=== PATIENT | female | born 1980 | race Caucasian/White ===

== ENCOUNTER 2024-09-22 09:15 | Outpatient (RCR) | payer MEDICARE, OTHER, SELFPAY ==
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
--- OUTSIDE RECORDS SUMMARY | 2024-05-05 08:23 | XMS_ITS | Continuity of Care Document ---
Author Name [facility] User [facility] Address Unknown Organization Unknown Address Unknown Procedures FILTER APPLIED:Only known Procedures with Onset Date within the last 5 years Procedure Date Procedure Provider Additional Inform ation Status THERAPEUTIC EXERCISES (15769) Completed PT EVAL MOD COMPLEX 30 MIN (60116) Completed MANUAL THERAPY 1/> REGIONS (66716) Completed Encounters FILTER APPLIED:Only known Encounters with Admission Date within the last 5 years Encounter Location Admission Discharge Billing Code Chainstitch Sewing Machine Operator Riya ttender Outpatient Keyla vo
--- OUTSIDE RECORDS SUMMARY | 2024-05-05 08:24 | XMS_ITS | Referral Summary ---
Author Organization [facility] Address [address] [place] [address]. [place] [address] Care Team Providers Care Slat Twister Name Role Phone Naman Hernandez MD Unavailable [phone] Naman Hernandez MD Primary Care Provider Allergies Active Allergy Reactions Criticality Noted Date Comments [place]-Containing Products 11/26/2016 [facility]lerence Medications aluminum chloride (DRYSOL) 20 % external solutionIndicatio ns:Molar Apply topically as needed 4 Active clobetasol (TEMOVATE) 0.05 % external solutionIndicatio ns:Molar Apply topically as needed 5 Active tretinoin (RETIN-A) 0.1 % creamIndications: Molar Apply topically as needed 5 Active [place]-3 Fatty Acids (OMEGA 3 PO)Indications:Mo lar Take 3 capsules by mouth daily Unsure of dosage. Active VITAMIN D, CHOLECALCIFEROL, POIndications:Mol ar Take by mouth daily Unsure of dosage. Active oxyCODONE (ROXICODONE) 5 MG IR tabletIndications :Molar Take 1-2 tablets (5-10 mg) by mouth every 3 hours as needed for pain or other (Moderate to Severe) 10 tablet 7 Active Additional Information Patient not taking.Reported on 03/18/2017 ibuprofen (ADVIL/MOTRIN) 600 MG tabletIndications :Molar Take 1 tablet (600 mg) by mouth every 6 hours as needed for pain (mild) 30 tablet 7 Active Additional Information Patient not taking.Reported on 03/18/2017 acetaminophen (TYLENOL) 325 MG tabletIndications :Molar Take 2 tablets (650 mg) by mouth every 4 hours as needed for other (mild pain) 30 tablet 7 Active Additional Information Patient not taking.Reported on 02/04/2017 Probiotic Product (PROBIOTIC DAILY PO) Take 2 tablets by mouth daily Active etonogestrel-ethi nyl estradiol (NUVARING) 0.12-0.015 MG/24HR vaginal ringIndications:G TD (gestational trophoblastic disease),Molar Insert 1 ring vaginally every 21 days then remove for 1 week then repeat with new ring. 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 17 Molar 11/19/2016 Immunizations Name Administration Dates Next Due Influenza Vaccine >6 months,es, PF 01/19/2013 Social History Tobacco Use Types Packs/Day Years Used Date Smoking Tobacco: Never Smokeless Tobacco: Never Alcohol Use Standard Drinks/Week Comments Yes 0 (1 standard drink = 0.6 oz pur e alcohol) social Comments Unknown Sex and Gender Information Value Date Recorded Sex Assigned at Not on file Legal Sex Female 11:05 AM CDT Gender Identity Not on file Sexual Orientation Not on file Last Filed Vital Signs Vital Sign Reading Time Taken Comments Blood Pressure 129/83 03/18/2017 7:57 AM SOCIAL AND POLITICAL STUDIES PROFESSOR Pulse 92 03/18/2017 7:57 AM SOCIAL AND POLITICAL STUDIES PROFESSOR Temperature 37.2 C (99 F) 03/18/2017 7:57 AM SOCIAL AND POLITICAL STUDIES PROFESSOR was drank coffee prior to reading Respiratory Rate 16 03/18/2017 7:57 AM SOCIAL AND POLITICAL STUDIES PROFESSOR Oxygen Saturation 99% 03/18/2017 7:5 7 AM SOCIAL AND POLITICAL STUDIES PROFESSOR Inhaled Oxygen Concentration - - Weight 78.1 kg (172 lb 3.2 oz) 03/18/2017 7:57 AM SOCIAL AND POLITICAL STUDIES PROFESSOR Height 170.2 cm (5' 7.01) 03/18/2017 7 :57 AM SOCIAL AND POLITICAL STUDIES PROFESSOR Body Mass Index 26.96 03/18/2017 7:57 AM SOCIAL AND POLITICAL STUDIES PROFESSOR Plan of Treatment Not on file Insurance [employer] Care Teams Slat Twister Relationship Specialty Start Date End Date Naman Hernandez MD [address] [facility] [address] [place] [phone] PCP - General pressure steamer tender 11/20/16 Naman Hernandez MD [address] [facility] [address] [place] [phone] pressure steamer tender 11/13/16
--- OUTSIDE RECORDS SUMMARY | 2024-05-05 08:24 | XMS_ITS | Clinical Summary ---
Author Organization [facility] Address [address] [place] [address]. [place] [address] Care Team Providers Care Alterations Workroom Clerk Name Role Phone Naman Hernandez MD Unavailable [phone] Naman Hernandez MD Primary Care Provider Allergies Active Allergy Reactions Criticality Noted Date Comments [place]-Containing Products 11/26/2016 Intolerence Medications aluminum chloride (DRYSOL) 20 % external solutionIndicatio ns:Molar Apply topically as needed 4 Active clobetasol (TEMOVATE) 0.05 % external solutionIndicatio ns:Molar Apply topically as needed 5 Active tretinoin (RETIN-A) 0.1 % creamIndications: Molar Apply topically as needed 5 Active [place]-3 Fatty Acids (OMEGA 3 PO)Indications:Mo lar Take [...] Administration Dates Next Due Influenza Vaccine >6 months,quad, PF 01/19/2013 Family History Medical History Relation Comments Hyperthyroidism Sister Cancer No family hx of Relation Status Comments Sister Social History Tobacco Use Types Packs/Day Years [...] Comments Blood Pressure 129/83 03/18/2017 7:57 AM CUSTOMER GREETER Pulse 92 03/18/2017 7:57 AM CUSTOMER GREETER Temperature 37.2 C (99 F) 03/18/2017 7:57 AM CUSTOMER GREETER was drank coffee prior to reading Respiratory Rate 16 03/18/2017 7:57 AM CUSTOMER GREETER Oxygen Saturation 99% 03/18/2017 7:5 7 AM CUSTOMER GREETER Inhaled Oxygen Concentration - - Weight 78.1 kg (172 lb 3.2 oz) 03/18/2017 7:57 AM CUSTOMER GREETER Height 170.2 cm (5' 7.01) 03/18/2017 7 :57 AM CUSTOMER GREETER Body Mass Index 26.96 03/18/2017 7:57 AM CUSTOMER GREETER Plan of Treatment Not on file Insurance [employer] Care Teams Alterations Workroom Clerk Relationship Specialty Start Date End Date Naman Hernandez MD [address] [facility] [address] [place] [phone] PCP - General spring manufacturing set up technician 11/20/16 Naman Hernandez MD [address] [phone] spring manufacturing set up technician 11/13/16
--- OUTSIDE RECORDS SUMMARY | 2024-05-05 08:24 | XMS_ITS | Clinical Summary ---
Author Organization [facility] Address [address], [place] [address] Care Team Providers Care Coal Dumping Equipment Operator Name Role Phone Unassigned, Provider Primary Care Provider Unava ilable Source Comments You are receiving this document as you are listed as the primary care provider,follow-up provider, or the patient has been referred to you for consultation.This is in compliance with the Medicare and[facility] Systemca[facility] EHR Incentive Program,which states Providers who transition their patient to another setting of careor provider of care or refers their patient to another provider of care shouldprovide summary care record for each transition of care or referral. [facility] Allergies No known active allergies Medications Medication Sig Dispensed Refills Start Date End Date Status GENERAL UTILITY WORKER THYROID 90 MG tablet Take 90 mg by mouth daily. 04/30/2021 Active Immunizations Name Administration Dates Next Due Pfizer Monovalent 12+ 08/06/2021 Pfizer Monovalent 12+ Purple Top 10/03/2020,08/31 Social History Tobacco Use Types Packs/Day Years Used Date Smoking Tobacco: Never Smokeless Tobacco: Never Sex and Gender Information Value Date Recorded Sex Assigned at Not on file Gender Identity Not on file Sexual Orientation Not on file Plan of Treatment Health Maintenance Due Date Last Done Comments Cervical Cancer Screening Due 1981 Hep C Screening (Preventive Services) 1981 Mammogram 1981 HIV Screening (Preventive Services) 1997 Adult Preventive Visit 11/09/1999 HepB (1) 2000 COVID-19 Vaccine (4 - 2024-2 5 season) 2024 08/06/2021, 10/03/2020, 09/12/2020 Influenza (#1) 2024 01/30/2018, 03/21/2015, 03/20/2014 DTaP/Tdap/Td (2 - Tdap) 03/20/2024 03/20/20 14, 2001 Zoster/Shingles (1 of 2) 11/09/2031 HPV Vaccine Aged Out No longer eligi ble based on patient's age to complete this topic HepA Aged Out No longer eligi ble based on patient's age to complete this topic Hib Aged Out No longer eligi ble based on patient's age to complete this topic IPV (Polio) Aged Out No longer eligi ble based on patient's age to complete this topic MCV4 Aged Out No longer eligi ble based on patient's age to complete this topic Pneumococcal Aged Out No longer eligi ble based on patient's age to complete this topic Care Teams Coal Dumping Equipment Operator Relationship Specialty Start Date End Date Unassigned, Provider [address] [place] [address] PCP - General 07/19/08
--- OUTSIDE RECORDS SUMMARY | 2024-05-05 08:24 | XMS_ITS | Clinical Summary ---
Author Organization [employer] [facility] Address [place], [place] [address] Care Team Providers Care Chief Station Engineer Name Role Phone Pcp, No Primary Care Provider Unavailabl e Allergies Active Allergy Reactions Criticality Noted Date Comments Gluten Stomach Upset 01/14/2024 Medications amphetamine (Dyanavel XR) 20 mg TBph Take by mouth. Active serdexmethylphen-de xmethylphen (Azstarys) 52.3 mg- 10.4 mg cap Take by mouth. Active vilazodone (Viibryd) 40 mg tablet Take 40 mg by mouth once daily. Active brexpiprazole (Rexulti) 1 mg tablet Take 1 mg by mouth once daily. Active thyroid, pork, (BACON DE RINDER Thyroid) 120 mg tabletIndications:A cquired hypothyroidism Take 1 Tablet (120 mg) by mouth once daily. 90 Tablet Active Active Problems Problem Noted Date Diagnosed Date Attention deficit hyperactivity disorder (ADHD) 01/14/2024 Anxiety and depression 01/14/2024 Pap smear for cervical cancer screening 02/01/20 23 Overview (03/02/2023): 01/2023 NIL/HPV negative. Plan: Pap/HPV due 02/2028. Unspecified hypothyroidism 04/08/2007 Psoriasis of scalp Overview (03/20/2014): Dr Simmons [place] Hyperhydrosis disorder Acne vulgaris Resolved Problems Problem Noted Date Diagnosed Date Resolved Date Elderly multigravida in second trimester 07/07/2018 02/22/2023 Twin , dichorionic/ diamniotic, second trimester 07/07/2018 02/22/2023 Contraceptive management Encounters Date Type Department Care Team Description 03/08/2024 Telephone [facility] [address] [place] [address] Awilda Campos PA Lab 02/28/2024 Telephone [facility] [id number] [place] [phone] Awilda Campos PA Medication Management (thyroid (BACON DE RINDER Thyroid) 60 mg tablet) 02/28/2024 Telephone [facility] [id number] [place] [phone] Pcp, No Questions (Order request and medication) 02/04/2024 10:20 AM CDT Ancillary Procedure [facility] [address] [facility] [address] [place] [address] 02/04/2024 Travel from Last 3 Months Immunizations Name Administration Dates Next Due COVID-19 vaccine (Zify 30mcg/0.3mL) P F, MDV 10/03/2020,09/12/2020 Influenza Virus, Unspecified 01/30/2018 Influenza, IIV4 03/21/2015,03/20/2014 Td (Age >=7 Years) 2001 Tdap 03/20/2014 Family History Medical History Relation Name Comments Alcoholism Father Hyperlipidemia Father Hypertension Father Other Father smoker Heart Disease Maternal Grandfather Arthritis Maternal Grandmother Blood Disease Maternal Grandmother anemia Heart Disease Maternal Grandmother valvul ar Hyperlipidemia Maternal Grandmother Hypertension Maternal Grandmother Other Maternal Grandmother Hypertension Mother Other Mother smoker Other Paternal Grandfather post op bleeding Thyroid Disease Paternal Grandmother hype r Anemia Sister Graves' disease Sister Relation Name Status Comments Father Alive Half-Brother Alive Maternal Grandfather (Age 60's) heart Maternal Grandmother Mother Alive Paternal Grandfather (Age 58) po st op bleeding Paternal Grandmother Sister Alive Social History Tobacco Use Types Packs/Day Years Used Date Smoking Tobacco: Never Smokeless Tobacco: Never Tobacco Cessation:Counseling Given: Yes Alcohol Use Standard Drinks/Week Comments Not Currently 0 (1 standard drink = 0.6 oz pur e alcohol) none PHQ-2 Answer Date Recorded PHQ-2 TOTAL SCORE 1 02/22/2023 Social Connections Answer Date Recorded Frequency of Communication with Friends and Fami ly 0 05/18/2022 Financial Resource Strain Answer Date R ecorded Difficulty of Paying Living Expenses 3 05/18/2022 Difficulty of Paying Living Expenses Not on file 05/18/2022 Food Insecurity Answer Date Recorded Worried About Running Out of Food in the Last Ye ar 1 05/18/2022 Transportation Needs Answer Date Record ed Lack of Transportation (Medical) 1 05/18/2022 Housing Stability Answer Date Recorded Unable to Pay for Housing in the Last Year 1 05/18/2022 Comments No Sex and Gender Information Value Date Recorded Sex Assigned at Not on file Legal Sex Female 7:19 AM BASKET[employer]ALL [employer] Gender Identity Not on file Sexual Orientation Not on file 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 on file Not on file Not on file Not on file Not on file Not on file Not on file Obstetrics History Para Term AB IAB SAB Ectopic Multiple Livin g Live Births 0 0 0 0 0 0 0 0 0 0 Last Filed Vital Signs Vital Sign Reading Time Taken Comments Blood Pressure 112/78 01/14/2024 1:46 PM CDT Pulse 77 01/14/2024 1:46 PM CDT Temperature 37.4 C (99.3 F) 02/22/2023 10:49 AM CDT Respiratory Rate 16 07/08/2021 9:21 AM BASKETBALL SCOUT Oxygen Saturation 99% 01/14/2024 1:46 PM CDT Inhaled Oxygen Concentration - - Weight 86.1 kg (189 lb 14.4 oz) 01/14/2024 1:46 PM CDT Height 171 cm (5' 7.32) 01/14/2024 1:46 PM CDT Body Mass Index 29.46 01/14/2024 1:46 PM CDT Plan of Treatment Health Maintenance Due Date Last Done Comments COVID-19 vaccine series ( season) 2024 08/06/2021, 10/03/2020, 09/12/2020 Influenza for age 9-49 01/02/2024 8, 03/21/2015, 03/20/2014, Additional history exists Depression screening for age 12+ 02/24/2024 02/23/2023, 02/22/2023, 04/06/2019, Additional history exists Tetanus booster 03/20/2024 03/20/2014, 03/03, 2001 BMI (ht and wt on same day) for age 18+ 01/13/2025 01/14/2024, 02/22/2023, 02/26/2021, Additional history exists Pap test for age 21-65 02/23/2028 , 02/22/2023, 09/19/2018 (Completed [facility]), Additional history exists Tdap Completed 03/20/2014, 03/20/2014 Hepatitis C screening for age 18-79 Completed 02/22/2023 HIV for age 15-65 Completed 01/14/2024, 02/22/2023 Pneumococcal series for age 6-49 Aged Out No longer eligible based on patient's age to complete this topic Procedures Procedure Name Priority Date/Time Associated Diagnosis Comments XR MAMMO IVET BILAT SCREEN Routine 02/04/2024 9:53 AM CDT Visit for screening mammogram ANTI HIV 1/2 Routine 01/14/2024 2:21 PM CDT Screening for STD (sexually transmitted disease) ANTI HCV Routine 02/22/2023 11:55 AM CDT Screening for STD (sexually transmitted disease) HPV HIGH RISK Routine 02/22/2023 11:00 AM CDT Pap smear for cervical cancer screening from Last 3 Months or Most Recently Relevant to Health Maintenance Results * XR MAMMO IVET BILAT SCREEN (02/04/2024 9:53 AM CDT) Anatomical Region Laterality Modality BREASTS, Breast Left, Breast Right Bilateral Mammography Impressions 02/04/2024 10:42 AM CDT There is no radiographic evidence for malignancy. Recommend annual mammograms. MAMMOGRAM ASSESSMENT: ACR 1 Negative PATIENTS: You will also receive a letter with your examination results in an easy to read format. If you have questions about your results, please contact your referring provider. Narrative 02/04/2024 10:42 AM CDT For Patients: As a result of the 21st Century Cures Act, medical imaging exams and procedure reports are released immediately into your electronic medical record. You may view this report before your referring provider. If you have questions, please contact your health care provider. XR MAMMO IVET BILAT SCREEN [[id number]] CLINICAL HISTORY: This is an asymptomatic 43 y.o. patient. INDICATION FOR EXAM: Mammogram Screening. TECHNIQUE: CC & MLO views were obtained. This study was evaluated with the assistance of Computer-Aided Detection. Breast Tomosynthesis was used in interpretation. COMPARISON FILM: This is a baseline study. FINDINGS: The breasts are heterogeneously dense, which may obscure small masses. There are no dominant masses, suspicious micro calcifications or areas of architectural distortion. us Awilda LOMAS MAMMO Final Result * ANTI HIV 1/2 (01/14/2024 2:21 PM CDT) HIV-1/HIV-2 SCREEN Non-Reacti ve Non-Reacti ve 01/15/2024 12:10 AM CDT [facility] [employer] Comment:HIV-1 p24 and HIV-1/ HIV-2 Ab Not Detected. Blood BLOOD SPECIMEN / Unknown Venipuncture / Unknown 01/14/2024 2:21 PM CDT 01/14/2024 2:22 PM CDT us Awilda LOMAS SEND OUTS Final Result [facility] [address] [place] [address], * ANTI HCV (02/22/2023 11:55 AM CDT) HEPATITIS C ANTIBODY Non-Reacti ve Non-React edyta 02/22/2023 9:50 PM CDT [facility] Comment:Please note, per www .CDC.gov: If a patient is known to be at high risk of HCV infection, or is symptomatic, and the physician's suspicion of HCV infection is high, HCV RNA testing is often employed and is of diagnostic value, even after an initial negative anti-HCV test result. Blood BLOOD SPECIMEN / Unknown Venipuncture / Unknown 02/22/2023 11:55 AM CDT 02/22/2023 12:02 PM CDT Awilda LOMAS SEND OUTS Final Result Performing Organization Address City/[facility]/ZIP Co de Phone Number [facility] [address] [address], * HPV HIGH RISK (02/22/2023 11:00 AM CDT) TYPE 16 Negative Negative 02/24/2023 2:07 PM CDT [facility] TYPE 18 Negative Negative 02/24/2023 2:07 PM CDT [facility] OTHER HIGH RISK TYPES Negative Negative 02/24/2023 2:07 PM CDT [facility] Other (Cervical) Non-Blood / Unknown 02/22/2023 11:00 AM CDT 02/23/2023 10:53 AM CDT Narrative [facility] - 02/24/2023 2:07 PM CDT HPV types 16, 18, 31, 33, 35, 39, 45, 51, 52, 56, 58, 59, 66 and 68 DNA were undetectable or below the pre-set threshold. Methodology: Juliet Martha 4800 HPV Test Awilda LOMAS MICROBIOLOGY Final Result Performing Organization Address City/[facility]/ZIP Co de Phone Number [facility] [address] [place] [phone], from Last 3 Months or Most Recently Relevant to Health Maintenance Care Teams Chief Station Engineer Relationship Specialty Start Date End Date Pcp, No . PCP - General 10/16/21
== END 2025-01-20 23:59 | disposition home or self-care (01) ==
PROVIDERS: PCP Nurse Practitioner Family; Visit Provider Nurse Practitioner Family
DX: M25.562 Pain in left knee (principal); M54.2 Cervicalgia; M25.511 Pain in right shoulder; Z51.89 Encounter for other specified aftercare
CPT/HCPCS: 97110; 97140; 97162; 97164